=== PATIENT | female | born 1955 | race Two or more races ===

== ENCOUNTER 2023-04-03 18:50 | Emergency (ER) | payer OTHER ==
[~2023-04-03] VITALS: Ht 160 cm; Wt 77.1 kg
[2023-04-03] MEDS ORDERED: TOPROL XL25 M1 (19:30)
== END 2023-04-04 00:17 | disposition home or self-care (01) ==
LOC: ER 18:50
PROVIDERS: Emergency Medicine
DX: R10.9 Unspecified abdominal pain (principal); I10 Essential (primary) hypertension; E78.00 Pure hypercholesterolemia, unspecified; K80.20 Calculus of gallbladder without cholecystitis without obstruction; K57.30 Diverticulosis of large intestine without perforation or abscess without bleeding
CPT/HCPCS: 36415; 74176; 96365; 99284; J3490

== ENCOUNTER 2023-05-03 08:56 | Outpatient (CLI) | payer OTHER ==
[~2023-05-03 08:56] MED LIST: TOPROL XL25 M1
== END 2023-05-03 09:07 | disposition home or self-care (01) ==
LOC: MRI 08:56
DX: R10.9 Unspecified abdominal pain (principal); R51.9 Headache, unspecified
CPT/HCPCS: 70551; 74177; Q9965

== ENCOUNTER 2023-05-14 22:09 | Emergency (ER) | payer OTHER ==
[~2023-05-14] VITALS: Ht 160 cm; Wt 59.0 kg
[2023-05-14] MEDS ORDERED: LUMIGAN2.5 M1 (23:21)
[2023-05-14] MEDS ORDERED: CRESTOR20 MG (23:21)
== END 2023-05-15 04:38 | disposition home or self-care (01) ==
LOC: ER 22:09
DX: I10 Essential (primary) hypertension (principal)